=== PATIENT | female | born 1935 | race Asian ===

== ENCOUNTER 2017-09-30 14:58 | Inpatient (IN) | payer MEDICAID, MEDICARE ==
[~2017-09-30] VITALS: Ht 152.4 cm; Wt 68.9 kg
--- NOTE | 2017-09-30 15:05 | NUR ---
BIBRA 89 FROM URGENT CARE, C/O CHEST PAIN X 2 WEEKS, WORSENING TODAY. PATIENT RECEIVED 4 SPRAYS NITRO AND ASA 162MG X 2 BEARING MAKER. PATIENT IS A/OX 4. BREATHING EVEN AND UNLABORED. DENIES ANY CHEST PAIN AT THIS TIME. NO SOB, NAD, VITALS STABLE. SAFETY AND COMFORT MEASURES IN PLACE. AWAITING MD ORDERS.
--- NOTE | 2017-09-30 15:20 | NUR ---
NEW IV STARTED ON RAC, 20G. BLOOD DRAWN AND SENT TO LAB.
[2017-09-30 15:41] LABS: BASOPHILS # (AUTO) 0.1 /CMM (0.0-0.2); BASOPHILS % (AUTO) 1.2 % (0.0-2.0); EOSINOPHILS % (AUTO) 5.7 % (0.0-6.0); HEMATOCRIT 34 % (33-45); HEMOGLOBIN 11.6 g/dL (11.5-14.8); LYMPHOCYTES # (AUTO) 1.8 /CMM (0.8-4.8); LYMPHOCYTES % (AUTO) 30.3 % (20.0-44.0); MEAN CORPUSCULAR HGB CONC 34 g/dl (31.0-36.0); MEAN CORPUSCULAR VOLUME 86 fL (82-100); MONOCYTES # (AUTO) 0.5 /CMM (0.1-1.30); MONOCYTES % (AUTO) 8.4 % (2.0-12.0); NEUTROPHILS # (AUTO) 3.3 /CMM (1.8-8.9); NEUTROPHILS % (AUTO) 54.4 % (43.0-81.0); PLATELET COUNT (AUTO) 197 /CMM (150-450); RDW COEFFICIENT OF VARIATION 14.6 (11.5-15.0); RED BLOOD CELL COUNT(AUTO) 3.99 MIL/uL (4.0-5.2)
[2017-09-30 15:47] LABS: CALCIUM, SERUM 6.4 mg/dL (8.5-10.1); CARBON DIOXIDE 30 mmol/L (21-32); CHLORIDE 110 mmol/L (98-107); GLUCOSE 211 mg/dL (74-106); POTASSIUM 2.9 mmol/L (3.5-5.1); SODIUM SERUM 146 mmol/L (136-145); UREA NITROGEN, BLOOD 15 mg/dL (7-18)
[2017-09-30 15:55] LABS: TROPONIN I < 0.017 ng/mL (0.00-0.056)
[2017-09-30 15:57] LABS: INR 2.75 (0.85-1.15)
--- NOTE | 2017-09-30 16:54 | NUR ---
REGULATORY INTERN, PAMELA MARIE AT BEDSIDE FOR EVAL.
[2017-09-30] MEDS ORDERED: POTASSIUM CHLORIDE 20 MEQ TAB.PRT.SR PO ONE ×3 (17:00→21:30)
[2017-09-30] MEDS ORDERED: ASPI-1152 PO (17:09)
[2017-09-30] MEDS ORDERED: HYDR-4076 PO (17:09)
[2017-09-30] MEDS ORDERED: OMEP20TA5 PO (17:10)
[2017-09-30] MEDS ORDERED: CALC667C6 PO (17:10)
[2017-09-30] MEDS ORDERED: GABA-532 PO (17:10)
[2017-09-30] MEDS ORDERED: BUME1TAB4 PO (17:10)
[2017-09-30] MEDS ORDERED: CARV6.252 PO (17:10)
[2017-09-30] MEDS ORDERED: SEVE800T8 PO (17:10)
[2017-09-30] MEDS ORDERED: ATOR40TA PO (17:10)
[2017-09-30] MEDS ORDERED: TEMA15CA PO (17:10)
[2017-09-30] MEDS ORDERED: CALC-883 PO (17:10)
[2017-09-30] MEDS ORDERED: ISOS30TA6 PO (17:10)
[2017-09-30] MEDS ORDERED: NIFE60TA73 PO (17:10)
[2017-09-30] MEDS ORDERED: CITR30SO PO (17:10)
[2017-09-30] MEDS ORDERED: CHOL500052 PO (17:11)
--- NOTE | 2017-09-30 17:21 | NUR ---
CALLED NURSING SUPP FOR BED
--- NOTE | 2017-09-30 17:36 | NUR ---
ADMIT TO 312-2
--- NOTE | 2017-09-30 17:45 | NUR ---
report given to karla alfred for dia upon admission.
--- NOTE | 2017-09-30 18:03 | NUR ---
PATIENT TRANSPORTED TO [facility] VIA ACLS PROTOCOL. LEODAN ALLEN/ALAYNA TO PROVIDE BENNY.
--- NOTE | 2017-09-30 18:10 | NUR ---
DRY ROOM ATTENDANT ADMITTING NOTES RECEIVED PATIENT ALERT AWAKE, AND VERBALLY RESPONSIVE, RESPIRATIONS EVEN AND UNLABORED, VITAL SIGNS 130/60,91,16,96% RA,97.6. ON UNCLAIMED PROPERTY OFFICER SR, SAFETY MEASURES IN PLACE, ORIENTED TO STAFF AND ROOM , CALL LIGHT KEPT WITHIN REACH, MD MADE AWARE, AWAITING ORDERS WILL CONTINUE TO MONITOR
--- NOTE | 2017-09-30 19:20 | NUR ---
FEATHER EDGER OPENING NOTE RECEIVED PATIENT IN BED, SITTING HAVING DINNER. ALERT ORIENTED X4. ON ROOM AIR, TOLERATING WELL, RESPIRATIONS EVEN AND UNLABORED, IN NO APPARENT DISTRESS OR DISCOMFORT AT THIS TIME. PATIENT ON TELE MONITORING WITH SINUS RHYTHM WITH HR IN 80-S. PATIENT HAD LEFT UPPER ARM SHUNT BRUIT PRESENT, AND RIGHT CHEST WALL CATH FOR DIALYSIS, DRESSING INTACT AND CLEAN. RIGHT HAND IV SITE 20G SL. PATENT AND INTACT. PATIENT WAS JUST ADMITTED TO THE UNIT. AWAITING FOR FURTHER ORDERS FROM THE PROVIDER, WILL CONTINUE TO MONITOR.
[2017-09-30 20:00] VITALS: BP 151/61
[2017-09-30] MEDS ORDERED: ONDANSETRON HCL/PF 4 MG/2 ML VIAL IVP PRN (21:00)
[2017-09-30] MEDS ORDERED: Z GUARD REMEDY 2 OZ OINT TP PRN (21:00)
[2017-09-30] MEDS ORDERED: MAGNESIUM HYDROXIDE 30 ML UDC PO PRN (21:00)
[2017-09-30] MEDS ORDERED: TEMAZEPAM 15 MG CAPSULE PO PRN (21:00)
[2017-09-30] MEDS ORDERED: DEXTROSE 50%-WATER 50 ML DISP.SYRIN IV PRN (21:00)
[2017-09-30] MEDS ORDERED: HYDROCODONE/APAP 5/325MG 1 EACH TABLET PO PRN (21:00)
[2017-09-30] MEDS ORDERED: NITROGLYCERIN 0.4 MG/TAB BOTTLE SL PRN (21:00)
[2017-09-30] MEDS ORDERED: ACETAMINOPHEN 325 MG TABLET PO PRN (21:00)
[2017-09-30] MEDS ORDERED: MORPHINE SULFATE INJ 2 MG/ML DISP.SYRIN IV PRN (21:00)
[2017-09-30] MEDS: BLOOD SUGAR DIAGNOSTIC 1 EACH STRIP IN SCH (21:37)
[2017-09-30] MEDS: INSULIN REGULAR, HUMAN 100 UNIT/ML 3 ML VIAL SQ PRN (21:38)
[2017-09-30] MEDS: GABAPENTIN 100 MG CAPSULE PO SCH (21:40)
[2017-09-30] MEDS: ATORVASTATIN 40 MG TABLET PO SCH (21:40)
[2017-09-30 22:00] VITALS: BP 151/60
[2017-09-30] MEDS ORDERED: ZOLPIDEM TARTRATE 5 MG TABLET PO PRN (22:00)
[2017-10-01] VITALS: BP 121/64
[2017-10-01 03:29] LABS: BASOPHILS # (AUTO) 0.1 /CMM (0.0-0.2); EOSINOPHILS % (AUTO) 5.1 % (0.0-6.0); HEMATOCRIT 32 % (33-45); HEMOGLOBIN 10.8 g/dL (11.5-14.8); LYMPHOCYTES # (AUTO) 2.4 /CMM (0.8-4.8); LYMPHOCYTES % (AUTO) 33.7 % (20.0-44.0); MEAN CORPUSCULAR HGB CONC 34 g/dl (31.0-36.0); MEAN CORPUSCULAR VOLUME 87 fL (82-100); MONOCYTES # (AUTO) 0.8 /CMM (0.1-1.30); MONOCYTES % (AUTO) 10.6 % (2.0-12.0); NEUTROPHILS # (AUTO) 3.6 /CMM (1.8-8.9); NEUTROPHILS % (AUTO) 49.6 % (43.0-81.0); PLATELET COUNT (AUTO) 188 /CMM (150-450); RDW COEFFICIENT OF VARIATION 15.5 (11.5-15.0); RED BLOOD CELL COUNT(AUTO) 3.63 MIL/uL (4.0-5.2); WHITE BLOOD COUNT (AUTO) 7.2 K/uL (4.3-11.0)
[2017-10-01 03:43] LABS: CALCIUM, SERUM 8.1 mg/dL (8.5-10.1); CARBON DIOXIDE 32 mmol/L (21-32); CHLORIDE 106 mmol/L (98-107); CREATININE 3.4 mg/dL (0.6-1.3); GLUCOSE 63 mg/dL (74-106); MAGNESIUM 1.5 mg/dL (1.8-2.4); PHOSPHORUS 2.4 mg/dL (2.5-4.9); POTASSIUM 4.5 mmol/L (3.5-5.1); SODIUM SERUM 146 mmol/L (136-145); UREA NITROGEN, BLOOD 28 mg/dL (7-18)
[2017-10-01 03:46] LABS: CHOLESTEROL 117 mg/dL (<200); HDL CHOLESTEROL 53 mg/dL (40-60); LDL 38 mg/dL (0-99); TRIGLYCERIDES 180 mg/dL (30-150)
[2017-10-01 04:00] VITALS: BP 151/76
--- NOTE | 2017-10-01 04:52 | NUR ---
CELLULOID TRIMMER NOTES PATIENT'S BLOOD GLUCOSE RESULTS CAME BACK LOW IN MG/DL. PERFORMED FINGERSTICK GLUCOSE CHECK, READING IS 78 MG/DL. NO FURTHER ACTION PERFORMED, WILL CONTINUE TO MONITOR.
[2017-10-01] MEDS: BLOOD SUGAR DIAGNOSTIC 1 EACH STRIP IN SCH ×4 (06:49→23:24)
--- NOTE | 2017-10-01 07:25 | NUR ---
BASIN OPERATOR CLOSING NOTE PATIENT IN BED, RESTING COMFORTABLY, ALERT ORIENTED X3. ON ROOM AIR, TOLERATING WELL, RESPIRATIONS EVEN AND UNLABORED, IN NO APPARENT DISTRESS OR DISCOMFORT AT THIS TIME. PATIENT ON TELE MONITORING WITH SINUS RHYTHM WITH HR AT 75. PATIENT ON NPO STATUS SINCE MIDNIGHT. PATIENT HAS LEFT UPPER ARM FISTULA BRUIT PRESENT, AND RIGHT CHEST WALL CATH FOR DIALYSIS, DRESSING INTACT AND CLEAN. RIGHT HAND IV SITE 20G SL. PATENT AND INTACT. KEPT CLEAN AND COMFORTABLE, SAFETY MEASURES IN PLACE, BED IN LOW LOCKED POSITION, SIDE RAILS UP X2, WILL ENDORSE TO AM NURSE FOR BENNY.
[2017-10-01 08:00] VITALS: BP 157/68
[2017-10-01] MEDS: SEVELAMER CARBONATE 800 MG TABLET PO SCH ×3 (09:00→17:00)
[2017-10-01] MEDS: CARVEDILOL 6.25 MG TABLET PO SCH ×4 (09:00→21:58)
[2017-10-01] MEDS ORDERED: CARVEDILOL 6.25 MG TABLET PO SCH (09:00)
[2017-10-01] MEDS ORDERED: hydrALAZINE HCL 25 MG TABLET PO SCH (09:00)
[2017-10-01] MEDS ORDERED: REGADENOSON 0.4 MG/5 ML DISP.SYRIN IVP ONE (09:00)
[2017-10-01] MEDS: hydrALAZINE HCL 25 MG TABLET PO SCH ×4 (09:00→22:00)
[2017-10-01] MEDS ORDERED: MORPHINE SULFATE INJ 4 MG/ML DISP.SYRIN IV PRN (10:00)
--- NOTE | 2017-10-01 10:30 | NUR ---
BP MEDS HELD DUE TO PT. HAVING DIALYSIS.
--- NOTE | 2017-10-01 10:30 | NUR ---
NPO IN AM TILL NM STRESS TEST COMPLETED.
[2017-10-01] MEDS: ASPIRIN EC 81 MG TABLET.DR PO SCH (12:35)
[2017-10-01] MEDS: ISOSORBIDE MONONITRATE (30MG) 30 MG TAB.SR.24H PO SCH ×2 (12:36→17:20)
[2017-10-01] MEDS: PANTOPRAZOLE 40 MG TABLET.DR PO SCH (12:36)
[2017-10-01] MEDS: CALCIUM CARB 250MG /VITAMIN D 1 UDTAB PO SCH ×2 (12:36→18:56)
[2017-10-01] MEDS: NIFEdipine XL 60 MG TAB PO SCH ×2 (12:37→17:20)
[2017-10-01] MEDS: CITRIC ACID/SODIUM CITRATE (BICITRA)15 ML UDC PO SCH (12:38)
[2017-10-01] MEDS: BUMETANIDE (1 MG) 1 MG TABLET PO SCH (12:38)
[2017-10-01] MEDS: CALCIUM ACETATE 667 MG TABLET PO SCH ×2 (12:39→18:56)
--- NOTE | 2017-10-01 13:00 | NUR ---
AT TIME Cathie MARIE MAKING ROUNDS MENTIONED LOW MG. LEVEL.
[2017-10-01] MEDS: INSULIN REGULAR, HUMAN 100 UNIT/ML 3 ML VIAL SQ PRN ×3 (13:09→23:32)
[2017-10-01] MEDS ORDERED: K PHOS NEUTRAL 250 MG TABLET PO ONE (15:30)
[2017-10-01 16:00] VITALS: BP 118/69
--- NOTE | 2017-10-01 17:40 | NUR ---
DIALYSIS DONE BP MEDS HELD DUE TO LOW BP.
[2017-10-01] MEDS ORDERED: WARF2.5T47 PO ×2 (17:42)
--- NOTE | 2017-10-01 18:30 | NUR ---
DTR. HERE AND MENTIONED PT. TO BE ON COUMADIN-OBTAINED LIST AND COUMADIN SCHEDULE ENTERED BY MED RECON NURSE.
--- NOTE | 2017-10-01 19:00 | NUR ---
GIVEN NEUTRAPHOS FOR LOW PHOSPHOROUS LEVEL.
--- NOTE | 2017-10-01 19:10 | NUR ---
CALL OUT TO JAZIEL AND INFORMED HER OF COUMADIN NEED.ORDERS GIVEN.
[2017-10-01] MEDS ORDERED: WARFARIN SODIUM 1 MG TABLET PO STA (19:56)
[2017-10-01 20:00] VITALS: BP 184/73
--- NOTE | 2017-10-01 20:00 | NUR ---
MS RN NOTES RECEIVED ON BED A/O X3,BREATHING REGULAR,NOT IN ANY FORM OF DISTRESS,SALINE LOCK RIGHT HAND INTACT AND PATENT.WITH RIGHT CHEST WALL PERMA CATH FOR HD ACCESS.ABLE TO WALK WITH WALKER.CALL LIGHT IN REACH,NEEDS ANTICIPATED.
[2017-10-01] MEDS: ATORVASTATIN 40 MG TABLET PO SCH (21:57)
--- NOTE | 2017-10-01 21:58 | NUR ---
MS RN NOTES BP-184/73,BLOOD PRESSURE MEDS HELD ON DAYTIME,PATIENT HAS DIALYSIS PLUS NPO STATUS FOR LEXISCAN. MEDICATED WITH APRESOLINE 50MG PO UNSCHEDULED PER OUTSIDE RIGGER ANTONIETA AND COREG 12.5MG PO GIVEN UNSCHEDULED.
[2017-10-01 22:00] VITALS: BP 184/73
[2017-10-01] MEDS: GABAPENTIN 100 MG CAPSULE PO SCH (22:01)
--- NOTE | 2017-10-01 23:15 | NUR ---
MS RN NOTES ACCU-CHECK BLOOD SUGAR CHECK 167,COVERED WITH HUMULIN R 3 UNITS PER MILD SLIDING SCALE.
[2017-10-02] MEDS: BLOOD SUGAR DIAGNOSTIC 1 EACH STRIP IN SCH ×2 (06:25→12:35)
[2017-10-02] MEDS: INSULIN REGULAR, HUMAN 100 UNIT/ML 3 ML VIAL SQ PRN ×2 (06:30→12:32)
--- NOTE | 2017-10-02 06:38 | NUR ---
MS RN NOTES ACCU-CHECK BLOOD SUGAR CHECK 216,COVERED WITH HUMULIN R 4 UNITS PER SLIDING SCALE. LATEST BLOOD PRESSURE 99/51,PULSE-70.
--- NOTE | 2017-10-02 06:42 | NUR ---
MS RN NOTES ON BED AT THIS TIME.KEPT WARM AND COMFORTABLE.IN NO ACUTE DISTRESS.WILL ENDORSE TO DAY NURSE FOR BENNY.
--- NOTE | 2017-10-02 07:30 | NUR ---
RN MS NOTES PT IN BED, ASLEEP, EASY TO AROUSE, ALERT AND ORIENTED, NO COMPLAIN OF PAIN OR ANY DISOMFORT, RESPIRATIONS NORMAL, CALL LIGHT WITHIN REACH, KEPT COMFORTABLE, NEEDS ATTENDED.
[2017-10-02 08:39] LABS: INR 2.3 (0.87-1.13)
[2017-10-02 08:41] LABS: BASOPHILS % (AUTO) 0.5 % (0.0-2.0); EOSINOPHILS % (AUTO) 4.1 % (0.0-6.0); HEMATOCRIT 35 % (33-45); HEMOGLOBIN 11.6 g/dL (11.5-14.8); LYMPHOCYTES # (AUTO) 1.9 /CMM (0.8-4.8); LYMPHOCYTES % (AUTO) 29.9 % (20.0-44.0); MEAN CORPUSCULAR HGB CONC 34 g/dl (31.0-36.0); MEAN CORPUSCULAR VOLUME 88 fL (82-100); MONOCYTES # (AUTO) 0.7 /CMM (0.1-1.30); MONOCYTES % (AUTO) 10.6 % (2.0-12.0); NEUTROPHILS # (AUTO) 3.5 /CMM (1.8-8.9); NEUTROPHILS % (AUTO) 54.9 % (43.0-81.0); PLATELET COUNT (AUTO) 180 /CMM (150-450); RED BLOOD CELL COUNT(AUTO) 3.93 MIL/uL (4.0-5.2); WHITE BLOOD COUNT (AUTO) 6.4 K/uL (4.3-11.0)
[2017-10-02] MEDS: CALCIUM ACETATE 667 MG TABLET PO SCH ×2 (08:51→12:32)
[2017-10-02] MEDS: ASPIRIN EC 81 MG TABLET.DR PO SCH (08:51)
[2017-10-02] MEDS: CALCIUM CARB 250MG /VITAMIN D 1 UDTAB PO SCH ×2 (08:51→17:17)
[2017-10-02] MEDS: PANTOPRAZOLE 40 MG TABLET.DR PO SCH (08:51)
[2017-10-02] MEDS: SEVELAMER CARBONATE 800 MG TABLET PO SCH ×3 (08:51→17:17)
[2017-10-02 08:56] VITALS: BP 125/55
[2017-10-02] MEDS: CITRIC ACID/SODIUM CITRATE (BICITRA)15 ML UDC PO SCH (08:56)
[2017-10-02] MEDS: ISOSORBIDE MONONITRATE (30MG) 30 MG TAB.SR.24H PO SCH (09:00)
[2017-10-02] MEDS: NIFEdipine XL 60 MG TAB PO SCH (09:00)
[2017-10-02] MEDS: CARVEDILOL 6.25 MG TABLET PO SCH ×2 (09:00→17:18)
[2017-10-02] MEDS: hydrALAZINE HCL 25 MG TABLET PO SCH ×3 (09:00→17:18)
[2017-10-02] MEDS: BUMETANIDE (1 MG) 1 MG TABLET PO SCH (09:00)
--- NOTE | 2017-10-02 09:00 | NUR ---
RN MS NOTES AM BP MEDS HELD, DIALYSIS PT, BP WNL.
[2017-10-02 09:01] LABS: CALCIUM, SERUM 7.9 mg/dL (8.5-10.1); CARBON DIOXIDE 32 mmol/L (21-32); CHLORIDE 100 mmol/L (98-107); CREATININE 4.1 mg/dL (0.6-1.3); GLUCOSE 196 mg/dL (74-106); MAGNESIUM 1.6 mg/dL (1.8-2.4); PHOSPHORUS 3.7 mg/dL (2.5-4.9); POTASSIUM 4.6 mmol/L (3.5-5.1); SODIUM SERUM 141 mmol/L (136-145); UREA NITROGEN, BLOOD 32 mg/dL (7-18)
[2017-10-02] MEDS ORDERED: WARFARIN SODIUM 2.5 MG TABLET PO SCH ×2 (13:00→17:00)
[2017-10-02] MEDS: Magnesium 1GM/D5W 100ML PREMIX 100 ML IV SCH ×4 (13:49→16:42)
[2017-10-02 16:04] VITALS: BP 147/65
[2017-10-02 17:18] VITALS: BP 147/65
--- NOTE | 2017-10-02 18:04 | NUR ---
RN MS NOTES PT AWAKE, ALERT AND ORIENTED, NO COMPLAINT OF PAIN, BREATHING PATTERN NORMAL, PT SEEN BY DR. PHAN, DISCHARGE ORDER GIVEN, PT INFORMED, DISCHARGE AND MEDICATION INSTRUCTIONS PROVIDED TO PT AND DAUGHTER LORELEI, VERBALIZED UNDERSTANDING, BELONGINGS ACCOUNTED FOR, COMPLETED MAGNESIUM INFUSION ORDERED, HAD DINNER, PM MEDS GIVEN, ASSISTED TO WHEELCHAIR, ASSISTED TO HOSPITAL LOBBY, LEFT WITH DAUGHTER IN STABLE CONDITION.
[2017-10-03] MEDS ORDERED: WARFARIN SODIUM 2.5 MG TABLET PO SCH ×2 (13:00→17:00)
[2017-10-05] MEDS ORDERED: ERGOCALCIFEROL (VITAMIN D 2) 50,000 UNIT CAPSULE PO SCH (09:00)
== END 2017-10-02 18:33 | disposition home or self-care (01) | DRG 203 ==
LOC: ER 15:01 → TELE 18:14 → MED 10-01 09:35
PROVIDERS: ADMIT Nurse Practitioner Acute Care; ATTEND Nurse Practitioner Acute Care
PROC: 5A1D70Z Performance of Urinary Filtration, Intermittent, Less than 6 Hours Per Day (ICD-10-PCS; principal; 2017-10-01)
DX: M94.0 Chondrocostal junction syndrome [Tietze] (principal); I50.33 Acute on chronic diastolic (congestive) heart failure; E87.0 Hyperosmolality and hypernatremia; N18.6 End stage renal disease; I13.2 Hypertensive heart and chronic kidney disease with heart failure and with stage 5 chronic kidney disease, or end stage renal disease; I25.10 Atherosclerotic heart disease of native coronary artery without angina pectoris; E11.22 Type 2 diabetes mellitus with diabetic chronic kidney disease; E83.51 Hypocalcemia; E78.5 Hyperlipidemia, unspecified; D64.9 Anemia, unspecified; E87.6 Hypokalemia; K21.9 Gastro-esophageal reflux disease without esophagitis; Z99.2 Dependence on renal dialysis; Z86.73 Personal history of transient ischemic attack (TIA), and cerebral infarction without residual deficits; Z95.5 Presence of coronary angioplasty implant and graft; M25.511 Pain in right shoulder
CPT/HCPCS: 36415; 71045-TC; 76770-TC; 80048-TC; 80061-TC; 82962-TC; 83735-TC; 84100-TC; 84484-TC; 85025-TC; 85610-TC; 85730-TC; 87081-TC; 90935-TC; 93307-TC; A4606; A9502; J1815; J2785; J3475; Z7610